=== PATIENT | male | born 1945 | race Caucasian/White ===

== ENCOUNTER 2022-03-30 15:54 | Observation (INO) | payer MEDICARE, OTHER ==
--- NOTE | 2022-03-30 16:38 | ERPHSYRPT ---
- History of Present Illness Source: patient Exam Limitations: no limitations Patient Subjective Stated Complaint: SOB/Cough Triage Nursing Assessment: Patient brought back to ED per w/c and transferred to bed per self. Patient A+O X 3. Patient's skin flushed, warm and dry. Patient states he is COVID Positive as of 03/28/2022 per home test. 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 Patient complains of increased SOB, cough and fatigue. O2 sat 87% on room air. Patient denies pain or discomfort. Physician History: 76 yo wm w +home CV19 test presents w cough/fever/dyspnea upon exertion x 2 days. He has had mild hemoptysis but denies N/V/D/melena/hematochezia. Pt has h/o bovine AVR/MO/CAGB/stents/pacer/HTN/hyperlipidemia. He quit smoking in 1996. Sats mid-high 80's upon arrival which increased to low 90's on 2L O2 NC. Timing/Duration: other (2-3 days) Activities at Onset: rest Severity of Dyspnea-Max: moderate Severity of Dyspnea-Current: moderate Possible Cause: no prior episodes Modifying Factors: Improves With: activity Associated Symptoms: cough, fever, weakness, chills, hemoptysis, heaviness, tightness, No chest pain/discomfort, No calf pain, No dizziness, No heart racing, No lightheadedness, No leg swelling, No muscle spasms feet, No muscle spasms hands, No painful breathing, No productive cough, No sweating, No tingling face, No tingling hands Allergies/Adverse Reactions: simvastatin [From Zocor] Allergy (Verified 03/30/22 21:32) muscle pain Home Medications: Apixaban [Eliquis 5 mg Tablet] 5 mg PO BID 03/30/22 [History] Ascorbic Acid [Vitamin C] 1,000 mg PO 209903/30/22 [History] Atorvastatin Calcium 40 mg PO 209903/30/22 [History] Carvedilol [Coreg] 6.25 mg PO BID 03/30/22 [History] Cholecalciferol (Vitamin D3) [Vitamin D3] 1 tab PO 209903/30/22 [History] Folic Acid 1 mg PO 209903/30/22 [History] Hydroxychloroquine Sulfate 200 mg PO 209903/30/22 [History] Lisinopril 5 mg [Zestril 5 MG] 5 mg PO 209903/30/22 [History] Loratadine 10 mg [Claritin 10 mg] 10 mg PO 209903/30/22 [History] Methotrexate Sodium 2.5 mg [Trexall 2.5 mg] 10 mg PO WEEKLY 03/30/22 [History] Omeprazole 20 mg PO 209903/30/22 [History] Zinc Gluconate [Zinc] 50 mg PO 209903/30/22 [History] Hx Influenza Vaccination/Date Given: No Hx Pneumococcal Vaccination/Date Given: No Immunizations Up to Date: Yes Travel Risk - International Travel Have you traveled outside of the country in past 3 weeks: No - Coronavirus Screening Are you exhibiting any of the following symptoms?: Yes Symptoms: Fever, Cough: New Onset, Shortness of Breath, Headaches/Body Aches/Fatigue Close contact with a COVID-19 positive Pt in past 14-21 Days: No - Vaccine Status Have you recieved a Covid-19 vaccination: No - Review of Systems Constitutional: No Symptoms, Fever, Chills, Fatigue, Malaise, Night Sweats, Weakness Eyes: No Symptoms Ears, Nose, & Throat: No Symptoms, Nose Congestion, Nose Discharge Respiratory: No Symptoms, Cough, Dyspnea, Dyspnea on Exertion (DANIELS) Cardiac: No Symptoms Abdominal/Gastrointestinal: No Symptoms Genitourinary Symptoms: No Symptoms Musculoskeletal: No Symptoms Skin: No Symptoms Neurological: No Symptoms Psychological: No Symptoms Endocrine: No Symptoms Hematologic/Lymphatic: No Symptoms Immunological/Allergic: Pollen Allergy - Past Medical History Pertinent Past Medical History: Yes Neurological History: No Pertinent History ENT History: No Pertinent History Cardiac History: Coronary Artery Disease, High Cholesterol, Hypertension Respiratory History: No Pertinent History Endocrine Medical History: No Pertinent History Musculoskeletal History: Rheumatoid Arthritis GI Medical History: GERD History: No Pertinent History Psycho-Social History: No Pertinent History Male Reproductive Disorders: No Pertinent History - Past Surgical History Past Surgical History: Yes Neuro Surgical History: No Pertinent History Cardiac: CABG, Pacemaker Respiratory: No Pertinent History Gastrointestinal: No Pertinent History Genitourinary: No Pertinent History Musculoskeletal: No Pertinent History Male Surgical History: No Pertinent History - Social History Smoking Status: Never smoker Exposure to second hand smoke: No Drug Use: none Patient Lives Alone: No - Nursing Vital Signs Nursing Vital Signs: Initial Vital Signs Temperature 98.3 F 03/30/22 16:03 Respiratory Rate 22 03/30/22 16:03 O2 Sat by Pulse Oximetry 87 L 03/30/22 16:03 Pain Scale Pain Intensity 0 Low sats on RA - Physical Exam General Appearance: mild distress Eye Exam: PERRL/EOMI, eyes nml inspection Ears, Nose, Throat Exam: hearing grossly normal, normal ENT inspection, normal pharynx Neck Exam: normal inspection, non-tender, supple, full range of motion, No Brudzinski, No Kernig's, No meningismus, No carotid bruit Respiratory Exam: respiratory distress (Mild), airway intact, crackles/rales (Rales 1/2 up B) Cardiovascular/Chest Exam: murmur (3/6 MARLEN) Abdominal/Gastrointestinal Exam: soft, normal bowel sounds, No tenderness Extremity Exam: non-tender, normal range of motion, normal inspection, normal capillary refill, no calf tenderness, no pedal edema Peripheral Pulses Exam: carotid (R): 2+, carotid (L): 2+ Neurologic Exam: alert, oriented x 3, cooperative, project product manager II-XII nml as tested, normal mood/affect, sensation nml Skin Exam: normal color, warm, dry, No rash Lymphatic Exam: No adenopathy SpO2 Interpretation: hypoxic SpO2: 87 O2 Delivery: Room Air - Course Nursing assessment & vital signs reviewed: Yes EKG Interpreted by Me: RATE (NSR/Rate78/Non-specific St-Twave changes/Qwaves 3- AVF) - Radiology Exams Chest X-ray Interpretation: Discussed w/ radiologist (CXR patchy, diffuse airspace dz) Ordered Tests: Active Orders 24 hr Category Date Time Status EKG-ER Only STAT Care 03/30/22 16:07 Completed Low Cholesterol Diet 03/31/22 Breakfast Active CHEST 1 VIEW (PORTABLE) Stat Exams 03/30/22 16:08 Completed BLOOD CULTURE Stat Lab 03/30/22 19:10 Received CBC W DIFF AM.LAB Lab 03/31/22 04:00 Ordered CBC W DIFF Stat Lab 03/30/22 16:30 Completed CMP AM.LAB Lab 03/31/22 04:00 Ordered CMP Stat Lab 03/30/22 16:30 Completed Lactic Acid AM.LAB Lab 03/31/22 04:00 Ordered Lactic Acid Routine Lab 03/30/22 19:10 Completed Lactic Acid Stat Lab 03/30/22 16:26 Completed NT PRO BNP Stat Lab 03/30/22 16:30 Completed PROTIME WITH INR Stat Lab 03/30/22 16:30 Completed PTT Stat Lab 03/30/22 16:30 Completed TROPONIN Q4H Lab 03/30/22 16:30 Completed TROPONIN Q4H Lab 03/30/22 19:10 Completed TROPONIN Q4H Lab 03/31/22 00:15 Ordered Transfer Order Routine Transfer 03/30/22 Completed Medication Summary Generic Name Dose Route Start Last Admin Trade Name Freq PRN Reason Stop Dose Admin Albuterol Sulfate 4 puff 03/30/22 19:00 Albuterol Common Canister Inhaler IH 04/29/22 18:59 QIDRT [facility] [place] Dexamethasone Sodium Phosphate 4 mg 03/31/22 10:00 Dexamethasone Sod Phosphate 4 Mg/Ml Ml IV 04/30/22 09:59 DAILY [facility] [place] Heparin Sodium (Beef Lung) 5,000 unit 03/30/22 22:00 Heparin 5000 Units/0.5 Ml 5,000 Unit/0.5 Ml Syr SQ 04/29/22 21:59 Q12HT [facility] [place] Insulin Human Lispro 0 unit 03/30/22 18:42 Insulin Lispro 1 Unit SQ 04/29/22 18:41 UD PRN HYPERGLYCEMIA Ondansetron HCl 4 mg 03/30/22 18:42 Ondansetron Hcl 4 Mg/2 Ml Vial IV 04/29/22 18:41 Q6H PRN PRN NAUSEA/VOMITING Pantoprazole Sodium 40 mg 03/31/22 10:00 Pantoprazole 40 Mg Vial IV 04/30/22 09:59 Q24H10 EMANUEL Discontinued Medications Generic Name Dose Route Start Last Admin Trade Name Freq PRN Reason Stop Dose Admin Dexamethasone Sodium Phosphate 10 mg 03/30/22 18:15 03/30/22 18:27 Dexamethasone Sod Phosphate 10 Mg/Ml IV 03/30/22 18:16 10 mg STAT ONE Administration Dexamethasone Sodium Phosphate Confirm 03/30/22 18:25 Dexamethasone Sod Phosphate 10 Mg/Ml Administered 03/30/22 18:26 Dose 10 mg .ROUTE .STK-MED ONE Sodium Chloride 1,000 mls @ 999 mls/hr 03/30/22 18:14 03/30/22 19:36 Sodium Chloride 0.9% 1000 Ml IV 03/30/22 19:14 Infused .Q1H1M STA Infusion Sodium Chloride Confirm 03/30/22 18:25 Sodium Chloride 0.9% 1000 Ml Administered 03/30/22 18:26 Dose 1,000 mls @ ud .ROUTE .STK-MED ONE Lab/Rad Data: Laboratory Result Diagrams 03/30/22 16:30 03/30/22 16:30 Laboratory Results 03/30/22 03/30/22 03/30/22 Range/Units 19:10 19:10 16:30 WBC (4.0-10.5) x10^3/uL RBC (4.1-5.6) x10^6/uL Hgb (12.5-18.0) g/dL Hct (42-50) % MCV (78-100) fL MCH (26-32) pg MCHC (32-36) g/dL RDW (11.5-14.0) % Plt Count (150-450) x10^3/uL MPV (7.5-11.0) fL Gran % (36.0-66.0) % Immature Gran % (Auto) (0.00-0.4) % Nucleat RBC Rel Count (0.00-0.1) % Eos # (Auto) (0-0.5) x10^3/uL Immature Gran # (Auto) (0.00-0.03) x10^3u/L Absolute Lymphs (auto) (1.0-4.6) x10^3/uL Absolute Monos (auto) (0.0-1.3) x10^3/uL Absolute Nucleated RBC (0.00-0.01) x10^3u/L Lymphocytes % (24.0-44.0) % Monocytes % (0.0-12.0) % Eosinophils % (0.00-5.0) % Basophils % (0.0-0.4) % Absolute Granulocytes (1.4-6.9) x10^3/uL Basophils # (0-0.4) x10^3/uL PT (9.4-12.5) SECONDS INR (0.8-3.0) APTT (25.1-36.5) SECONDS Sodium (137-145) mmol/L Potassium (3.5-5.1) mmol/L Chloride (98-107) mmol/L Carbon Dioxide (22-30) mmol/L Anion Gap (5-15) MEQ/L BUN (9-20) mg/dL Creatinine (0.66-1.25) mg/dL Estimated GFR ML/MIN Glucose (74-106) mg/dL Lactic Acid 2.5 H (0.4-2.0) Calcium (8.4-10.2) mg/dL Total Bilirubin (0.2-1.3) mg/dL AST (17-59) U/L ALT (0-50) U/L Alkaline Phosphatase (38-126) U/L Troponin I 0.033 (0.000-0.034) ng/mL NT-Pro-B Natriuret Pep (0-1800) pg/mL Serum Total Protein (6.3-8.2) g/dL Albumin (3.5-5.0) g/dL Influenza Type A Ag NEGATIVE (NEGATIVE) Influenza Type B Ag NEGATIVE (NEGATIVE) RSV (PCR) NEGATIVE (Negative) SARS-CoV-2 (PCR) POSITIVE A (NEGATIVE) Slides for Path Review 03/30/22 03/30/22 03/30/22 Range/Units 16:30 16:30 16:30 WBC (4.0-10.5) x10^3/uL RBC (4.1-5.6) x10^6/uL Hgb (12.5-18.0) g/dL Hct (42-50) % MCV (78-100) fL MCH (26-32) pg MCHC (32-36) g/dL RDW (11.5-14.0) % Plt Count (150-450) x10^3/uL MPV (7.5-11.0) fL Gran % (36.0-66.0) % Immature Gran % (Auto) (0.00-0.4) % Nucleat RBC Rel Count (0.00-0.1) % Eos # (Auto) (0-0.5) x10^3/uL Immature Gran # (Auto) (0.00-0.03) x10^3u/L Absolute Lymphs (auto) (1.0-4.6) x10^3/uL Absolute Monos (auto) (0.0-1.3) x10^3/uL Absolute Nucleated RBC (0.00-0.01) x10^3u/L Lymphocytes % (24.0-44.0) % Monocytes % (0.0-12.0) % Eosinophils % (0.00-5.0) % Basophils % (0.0-0.4) % Absolute Granulocytes (1.4-6.9) x10^3/uL Basophils # (0-0.4) x10^3/uL PT 11.6 (9.4-12.5) SECONDS INR 1.10 (0.8-3.0) APTT 28.5 (25.1-36.5) SECONDS Sodium 136 L (137-145) mmol/L Potassium 4.1 (3.5-5.1) mmol/L Chloride 108 H (98-107) mmol/L Carbon Dioxide 17 L (22-30) mmol/L Anion Gap 15.4 H (5-15) MEQ/L BUN 36 H (9-20) mg/dL Creatinine 1.27 H (0.66-1.25) mg/dL Estimated GFR 58.8 ML/MIN Glucose 258 H (74-106) mg/dL Lactic Acid (0.4-2.0) Calcium 8.7 (8.4-10.2) mg/dL Total Bilirubin 0.70 (0.2-1.3) mg/dL AST 95 H (17-59) U/L ALT 49 (0-50) U/L Alkaline Phosphatase 71 (38-126) U/L Troponin I 0.032 (0.000-0.034) ng/mL NT-Pro-B Natriuret Pep 1350 (0-1800) pg/mL Serum Total Protein 6.8 (6.3-8.2) g/dL Albumin 3.6 (3.5-5.0) g/dL Influenza Type A Ag (NEGATIVE) Influenza Type B Ag (NEGATIVE) RSV (PCR) (Negative) SARS-CoV-2 (PCR) (NEGATIVE) Slides for Path Review 03/30/22 03/30/22 Range/Units 16:30 16:26 WBC 9.7 (4.0-10.5) x10^3/uL RBC 3.59 L (4.1-5.6) x10^6/uL Hgb 12.1 L (12.5-18.0) g/dL Hct 35.8 L (42-50) % MCV 99.7 (78-100) fL MCH 33.7 H (26-32) pg MCHC 33.8 (32-36) g/dL RDW 14.5 H (11.5-14.0) % Plt Count 223 (150-450) x10^3/uL MPV 11.0 (7.5-11.0) fL Gran % 92.8 H (36.0-66.0) % Immature Gran % (Auto) 0.4 (0.00-0.4) % Nucleat RBC Rel Count 0.0 (0.00-0.1) % Eos # (Auto) 0 (0-0.5) x10^3/uL Immature Gran # (Auto) 0.04 H (0.00-0.03) x10^3u/L Absolute Lymphs (auto) 0.32 L (1.0-4.6) x10^3/uL Absolute Monos (auto) 0.34 (0.0-1.3) x10^3/uL Absolute Nucleated RBC 0.00 (0.00-0.01) x10^3u/L Lymphocytes % 3.3 L (24.0-44.0) % Monocytes % 3.5 (0.0-12.0) % Eosinophils % 0.0 (0.00-5.0) % Basophils % 0.0 (0.0-0.4) % Absolute Granulocytes 8.96 H (1.4-6.9) x10^3/uL Basophils # 0 (0-0.4) x10^3/uL PT (9.4-12.5) SECONDS INR (0.8-3.0) APTT (25.1-36.5) SECONDS Sodium (137-145) mmol/L Potassium (3.5-5.1) mmol/L Chloride (98-107) mmol/L Carbon Dioxide (22-30) mmol/L Anion Gap (5-15) MEQ/L BUN (9-20) mg/dL Creatinine (0.66-1.25) mg/dL Estimated GFR ML/MIN Glucose (74-106) mg/dL Lactic Acid 2.8 H (0.4-2.0) Calcium (8.4-10.2) mg/dL Total Bilirubin (0.2-1.3) mg/dL AST (17-59) U/L ALT (0-50) U/L Alkaline Phosphatase (38-126) U/L Troponin I (0.000-0.034) ng/mL NT-Pro-B Natriuret Pep (0-1800) pg/mL Serum Total Protein (6.3-8.2) g/dL Albumin (3.5-5.0) g/dL Influenza Type A Ag (NEGATIVE) Influenza Type B Ag (NEGATIVE) RSV (PCR) (Negative) SARS-CoV-2 (PCR) (NEGATIVE) Slides for Path Review YES - Progress Progress: improved Air Movement: fair Progress Note: 03/30/22 18:[address] Galeas 03/30/22 18:47 10mg IV Decadron 03/30/22 21:58 1L NS bolus 03/30/22 21:58 Lactic acid decreasing w fluids Blood Culture(s) Obtained: Yes Discussed with : Michelle Counseled pt/family regarding: lab results, diagnosis, rad results - Departure Departure Disposition: Observation Clinical Impression: COVID-19 Condition: Stable Critical Care Time: Yes Critical Care Time(excluding separately billable procedures): Critical 30-74 mins
--- NOTE | 2022-03-30 16:46 | XRAY ---
Indication: Positive Covid 19. Comparison: None Portable chest demonstrates mild diffuse bilateral patchy airspace disease without consolidation/large effusion. Heart not enlarged with cardiac valve replacement and left dual-lead pacemaker. Bony thorax intact with osteopenia and degenerative changes.
[2022-03-30 17:04] LABS: Absolute Neutrophil Ct (ANC) 8.96 x10^3/uL (1.4-6.9); Basophil (Absolute #) 0 x10^3/uL (0-0.4); Eosinophil (Absolute #) 0 x10^3/uL (0-0.5); Hematocrit 35.8 % (42-50); Hemoglobin 12.1 g/dL (12.5-18.0); Lymphocyte (Absolute #) 0.32 x10^3/uL (1.0-4.6); Lymphocytes % 3.3 % (24.0-44.0); Mean Cell Volume 99.7 fL (78-100); Mean Corpuscular Hemoglobin 33.7 pg (26-32); Mean Corpuscular Hgb Concent. 33.8 g/dL (32-36); Monocyte (Absolute #) 0.34 x10^3/uL (0.0-1.3); Monocytes % 3.5 % (0.0-12.0); Neutrophil % 92.8 % (36.0-66.0); Platelet Count 223 x10^3/uL (150-450); Red Blood Count 3.59 x10^6/uL (4.1-5.6); Red Cell Distribution Width 14.5 % (11.5-14.0); White Blood Count 9.7 x10^3/uL (4.0-10.5)
[2022-03-30 17:19] LABS: INR 1.1 (0.8-3.0); PROTIME 11.6 SECONDS (9.4-12.5); PTT 28.5 SECONDS (25.1-36.5)
[2022-03-30 17:26] LABS: ALBUMIN 3.6 g/dL (3.5-5.0); ANION GAP 15.4 MEQ/L (5-15); BILIRUBIN,TOTAL 0.7 mg/dL (0.2-1.3); Calcium 8.7 mg/dL (8.4-10.2); Creatinine 1 1.27 mg/dL (0.66-1.25); EST GLOMERULAR FILTRATION RATE 58.8 ML/MIN; Potassium 4.1 mmol/L (3.5-5.1); Total Protein 6.8 g/dL (6.3-8.2)
[2022-03-30 17:53] LABS: INFLUENZA A NEGATIVE (NEGATIVE); INFLUENZA B NEGATIVE (NEGATIVE); RESPIRATORY SYNCTIAL VIRUS NEGATIVE (Negative)
[2022-03-30 18:13] LABS: SARS-CoV-2 Xpert Express POSITIVE (NEGATIVE)
[2022-03-30] MEDS ORDERED: Sodium Chloride 0.9% 1000 ML 1,000 ML IV STA (18:14)
[2022-03-30] MEDS ORDERED: DECADRON 10MG INJ. IV ONE (18:15)
[2022-03-30] MEDS ORDERED: Sodium Chloride 0.9% 1000 ML 1,000 ML ONE (18:25)
[2022-03-30] MEDS ORDERED: DECADRON 10MG INJ. ONE (18:25)
[2022-03-30] MEDS ORDERED: Zofran 4 MG/2 ML VIAL IV PRN (18:42)
[2022-03-30] MEDS ORDERED: HUMALOG SQ PRN (18:42)
[2022-03-30 20:26] LABS: Slide Review 1 YES
[2022-03-30] MEDS ORDERED: HEPARIN 5000 UNITS/0.5 ML (HIGH RISK MED) SQ SCH (22:00)
[2022-03-30] MEDS: VENTOLIN COMMON CANISTER IH SCH (22:12)
[2022-03-30] MEDS ORDERED: TYLENOL 325 MG PO PRN (23:25)
[2022-03-30] MEDS ORDERED: ELIQUIS 2.5 MG TABLET PO ONE (23:35)
[2022-03-30] MEDS ORDERED: Vitamin C 500 MG PO ONE (23:36)
[2022-03-30] MEDS ORDERED: Coreg 3.125 MG PO ONE (23:37)
[2022-03-30] MEDS ORDERED: VITAMIN D PO ONE (23:38)
[2022-03-30] MEDS ORDERED: FOLATE 1 MG PO ONE (23:39)
[2022-03-30] MEDS ORDERED: Zestril 5 MG PO ONE (23:40)
[2022-03-30] MEDS ORDERED: CLARITIN 10 MG PO ONE (23:40)
[2022-03-30] MEDS ORDERED: Zinc Gluconate 50 MG PO ONE (23:42)
[2022-03-30] MEDS ORDERED: Protonix 40MG Tablet PO ONE (23:42)
[2022-03-30] MEDS ORDERED: NON-FORMULARY ITEM PO ONE (23:43)
[2022-03-30] MEDS ORDERED: REMDESIVIR 200 MG in Sodium Chloride 0.9% 250 ML 250 ML IV ONE (23:47)
[2022-03-31] MEDS ORDERED: REMDESIVIR IV ONE (00:03)
[2022-03-31] MEDS ORDERED: Sodium Chloride 0.9% 250 ML 250 ML IV ONE (00:03)
[2022-03-31 03:37] LABS: Absolute Neutrophil Ct (ANC) 5.88 x10^3/uL (1.4-6.9); Basophil (Absolute #) 0 x10^3/uL (0-0.4); Eosinophil (Absolute #) 0 x10^3/uL (0-0.5); Hematocrit 38.2 % (42-50); Hemoglobin 12.5 g/dL (12.5-18.0); Lymphocyte (Absolute #) 0.35 x10^3/uL (1.0-4.6); Lymphocytes % 5.4 % (24.0-44.0); Mean Cell Volume 101.6 fL (78-100); Mean Corpuscular Hemoglobin 33.2 pg (26-32); Mean Corpuscular Hgb Concent. 32.7 g/dL (32-36); Mean Platelet Volume 10.9 fL (7.5-11.0); Monocyte (Absolute #) 0.23 x10^3/uL (0.0-1.3); Monocytes % 3.5 % (0.0-12.0); Neutrophil % 90.8 % (36.0-66.0); Platelet Count 203 x10^3/uL (150-450); Red Blood Count 3.76 x10^6/uL (4.1-5.6); Red Cell Distribution Width 14.8 % (11.5-14.0); White Blood Count 6.5 x10^3/uL (4.0-10.5)
[2022-03-31 04:01] LABS: ALBUMIN 3.6 g/dL (3.5-5.0); ALKALINE PHOSPHATASE 69 U/L (38-126); BLOOD UREA NITROGEN 29 mg/dL (9-20); CHLORIDE 110 mmol/L (98-107); Calcium 8.5 mg/dL (8.4-10.2); Carbon Dioxide 21 mmol/L (22-30); Creatinine 1 1.13 mg/dL (0.66-1.25); EST GLOMERULAR FILTRATION RATE > 60.0 ML/MIN; Glucose 169 mg/dL (74-106); SGOT/AST 88 U/L (17-59); SGPT/ALT 46 U/L (0-50); SODIUM 138 mmol/L (137-145); Total Protein 6.9 g/dL (6.3-8.2)
[2022-03-31 07:02] LABS: Slide Review 1 YES
[2022-03-31] MEDS ORDERED: DUONEB 0.5-3 MG/3 ml Neb IH ONE (08:07)
[2022-03-31] MEDS: DUONEB 0.5-3 MG/3 ml Neb IH SCH ×3 (08:10→18:55)
[2022-03-31] MEDS: VENTOLIN COMMON CANISTER IH SCH (08:23)
[2022-03-31] MEDS ORDERED: PROTONIX 40 MG IV IV SCH (10:00)
[2022-03-31] MEDS: Decadron 4 MG INJ IV SCH (10:20)
[2022-03-31] MEDS ORDERED: OLUMIANT PO SCH (11:00)
[2022-03-31] MEDS: ROCEPHIN 1 Gm-D5w 50 ml Bag** 1 G/50 ML IVPB IV SCH (11:49)
[2022-03-31] MEDS: Zithromax 500 MG/ 250 ML NaCl Premix 500 MG/250 ML IVPB IV SCH (11:49)
[2022-03-31] MEDS: Lactated Ringers 1,000 ML IV SCH (15:41)
[2022-03-31] MEDS ORDERED: MORPHINE SULFATE 2 MG INJ IV PRN (15:44)
--- NOTE | 2022-03-31 15:45 | PCM.HP ---
History of Present Illness - Chief Complaint Chief Complaint: COVID+ History of Present Illness: is a 76 year old male pt with CAD (hx VA and CABG), pacemaker, bovine valve, HTN, hyperlipidemia, and RA (hx TOB, quit 1996) who was admitted through ER with COVID. He started feeling ill approx 03/26/22 and was positive on 03/28/22. He started feeling poorly and couldnt care for his anymore so came with her to ER. He was initially started on 2L NC in ER. At 11pm it increased to 5L NC, and by this morning was 15L NC. - Review of Systems Constitutional: Fatigue, Weakness Respiratory: Cough, Short Of Breath All Other Systems: Reviewed and Negative Medications & Allergies Home Medications: Home Medication List Apixaban [Eliquis 5 mg Tablet] 5 mg PO BID 03/30/22 [History Confirmed 03/30/22] Ascorbic Acid [Vitamin C] 1,000 mg PO 2100 03/30/22 [History Confirmed 03/30/22] Atorvastatin Calcium 40 mg PO 2100 03/30/22 [History Confirmed 03/30/22] Carvedilol [Coreg] 6.25 mg PO BID 03/30/22 [History Confirmed 03/30/22] Cholecalciferol (Vitamin D3) [Vitamin D3] 1 tab PO 2100 03/30/22 [History Confirmed 03/30/22] Folic Acid 1 mg PO 2100 03/30/22 [History Confirmed 03/30/22] Hydroxychloroquine Sulfate 200 mg PO 2100 03/30/22 [History Confirmed 03/30/22] Lisinopril 5 mg [Zestril 5 MG] 5 mg PO 2100 03/30/22 [History Confirmed 03/30/22] Loratadine 10 mg [Claritin 10 mg] 10 mg PO 2100 03/30/22 [History Confirmed 03/30/22] Methotrexate Sodium 2.5 mg [Trexall 2.5 mg] 10 mg PO WEEKLY 03/30/22 [History Confirmed 03/30/22] Omeprazole 20 mg PO 2100 03/30/22 [History Confirmed 03/30/22] Zinc Gluconate [Zinc] 50 mg PO 2100 03/30/22 [History Confirmed 03/30/22] Allergies/Adverse Reactions: Allergies Allergy/AdvReac Type Severity Reaction Status Date / Time simvastatin [From Zocor] Allergy Verified 03/30/22 21:32 - Past Medical History Past Medical History: Yes Neurological History: No Pertinent History ENT History: No Pertinent History Cardiac History: Coronary Artery Disease, High Cholesterol, Hypertension Respiratory History: No Pertinent History Endocrine Medical History: No Pertinent History Musculoskelatal History: Rheumatoid Arthritis GI Medical History: GERD History: No Pertinent History Pyscho-Social History: No Pertinent History Male Reproductive Disorders: No Pertinent History Comment: 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 - Past Surgical History Past Surgical History: Yes Neuro Surgical History: No Pertinent History Cardiac History: CABG, Pacemaker Respiratory Surgery: No Pertinent History GI Surgical History: No Pertinent History Genitourinary Surgical Hx: No Pertinent History Musculskeletal Surgical Hx: No Pertinent History Male Surgical History: No Pertinent History - Social History Smoking Status: Never smoker Exposure to second hand smoke: No Alcohol: None Drug Use: none - Physical Exam Vital Signs: Vital Signs - 24 hr Temp Pulse Resp BP Pulse Ox 03/31/22 15:00 67 36 H 89 L 03/31/22 14:00 75 19 90 L 03/31/22 13:30 78 32 H 90 L 03/31/22 13:22 18 03/31/22 13:00 78 39 H 87 L 03/31/22 12:00 98.7 F 72 18 152/66 96 03/31/22 11:00 76 26 H 94 L 03/31/22 10:00 83 25 H 81 L 03/31/22 09:00 69 27 H 87 L 03/31/22 08:45 88 25 H 85 L 03/31/22 08:00 16 03/31/22 07:22 98 F 81 16 165/80 90 L 03/31/22 06:59 62 23 90 L 03/31/22 05:59 98.7 F 61 24 146/66 89 L 03/31/22 05:00 62 21 90 L 03/31/22 04:00 25 H 03/31/22 03:00 60 24 90 L 03/31/22 02:00 61 23 90 L 03/31/22 01:00 60 25 H 91 L 03/31/22 00:17 69 24 90 L 03/31/22 00:00 61 18 86 L 03/30/22 22:00 26 H 03/30/22 21:59 87 L 03/30/22 21:41 98.4 F 67 21 146/67 89 L 03/30/22 19:33 66 94 L 03/30/22 16:03 98.3 F 22 87 L General Appearance: no apparent distress, alert, other (fairly well-appearing) Neurologic Exam: oriented x 3, cooperative Eye Exam: eyes nml inspection Ears, Nose, Throat Exam: moist mucous membranes Neck Exam: normal inspection Respiratory Exam: diminished breath sounds (good air exchange), crackles/rales (bibasilar rales), No rhonchi, No wheezing Cardiovascular Exam: regular rate/rhythm, normal heart sounds, No murmur Gastrointestinal/Abdomen Exam: soft, normal bowel sounds, No tenderness, No distention, No mass, No guarding, No rebound Back Exam: normal inspection, No rash Extremity Exam: normal inspection, No pedal edema, No swelling Skin Exam: normal color, warm, dry, No rash Results - Labs Lab/Micro Results: Lab Results-Last 24 Hours 03/30/22 03/30/22 03/30/22 Range/Units 16:26 16:30 16:30 WBC 9.7 (4.0-10.5) x10^3/uL RBC 3.59 L (4.1-5.6) x10^6/uL Hgb 12.1 L (12.5-18.0) g/dL Hct 35.8 L (42-50) % MCV 99.7 (78-100) fL MCH 33.7 H (26-32) pg MCHC 33.8 (32-36) g/dL RDW 14.5 H (11.5-14.0) % Plt Count 223 (150-450) x10^3/uL MPV 11.0 (7.5-11.0) fL Gran % 92.8 H (36.0-66.0) % Immature Gran % (Auto) 0.4 (0.00-0.4) % Nucleat RBC Rel Count 0.0 (0.00-0.1) % Eos # (Auto) 0 (0-0.5) x10^3/uL Immature Gran # (Auto) 0.04 H (0.00-0.03) x10^3u/L Absolute Lymphs (auto) 0.32 L (1.0-4.6) x10^3/uL Absolute Monos (auto) 0.34 (0.0-1.3) x10^3/uL Absolute Nucleated RBC 0.00 (0.00-0.01) x10^3u/L Lymphocytes % 3.3 L (24.0-44.0) % Monocytes % 3.5 (0.0-12.0) % Eosinophils % 0.0 (0.00-5.0) % Basophils % 0.0 (0.0-0.4) % Absolute Granulocytes 8.96 H (1.4-6.9) x10^3/uL Basophils # 0 (0-0.4) x10^3/uL PT (9.4-12.5) SECONDS INR (0.8-3.0) APTT (25.1-36.5) SECONDS Sodium 136 L (137-145) mmol/L Potassium 4.1 (3.5-5.1) mmol/L Chloride 108 H (98-107) mmol/L Carbon Dioxide 17 L (22-30) mmol/L Anion Gap 15.4 H (5-15) MEQ/L BUN 36 H (9-20) mg/dL Creatinine 1.27 H (0.66-1.25) mg/dL Estimated GFR 58.8 ML/MIN Glucose 258 H (74-106) mg/dL POC Glucometer (74 to 106) mg/dL Lactic Acid 2.8 H (0.4-2.0) Calcium 8.7 (8.4-10.2) mg/dL Total Bilirubin 0.70 (0.2-1.3) mg/dL AST 95 H (17-59) U/L ALT 49 (0-50) U/L Alkaline Phosphatase 71 (38-126) U/L Troponin I (0.000-0.034) ng/mL NT-Pro-B Natriuret Pep 1350 (0-1800) pg/mL Serum Total Protein 6.8 (6.3-8.2) g/dL Albumin 3.6 (3.5-5.0) g/dL Procalcitonin (0.030-0.080) ng/mL Influenza Type A Ag (NEGATIVE) Influenza Type B Ag (NEGATIVE) RSV (PCR) (Negative) SARS-CoV-2 (PCR) (NEGATIVE) Slides for Path Review YES 03/30/22 03/30/22 03/30/22 Range/Units 16:30 16:30 16:30 WBC (4.0-10.5) x10^3/uL RBC (4.1-5.6) x10^6/uL Hgb (12.5-18.0) g/dL Hct (42-50) % MCV (78-100) fL MCH (26-32) pg MCHC (32-36) g/dL RDW (11.5-14.0) % Plt Count (150-450) x10^3/uL MPV (7.5-11.0) fL Gran % (36.0-66.0) % Immature Gran % (Auto) (0.00-0.4) % Nucleat RBC Rel Count (0.00-0.1) % Eos # (Auto) (0-0.5) x10^3/uL Immature Gran # (Auto) (0.00-0.03) x10^3u/L Absolute Lymphs (auto) (1.0-4.6) x10^3/uL Absolute Monos (auto) (0.0-1.3) x10^3/uL Absolute Nucleated RBC (0.00-0.01) x10^3u/L Lymphocytes % (24.0-44.0) % Monocytes % (0.0-12.0) % Eosinophils % (0.00-5.0) % Basophils % (0.0-0.4) % Absolute Granulocytes (1.4-6.9) x10^3/uL Basophils # (0-0.4) x10^3/uL PT 11.6 (9.4-12.5) SECONDS INR 1.10 (0.8-3.0) APTT 28.5 (25.1-36.5) SECONDS Sodium (137-145) mmol/L Potassium (3.5-5.1) mmol/L Chloride (98-107) mmol/L Carbon Dioxide (22-30) mmol/L Anion Gap (5-15) MEQ/L BUN (9-20) mg/dL Creatinine (0.66-1.25) mg/dL Estimated GFR ML/MIN Glucose (74-106) mg/dL POC Glucometer (74 to 106) mg/dL Lactic Acid (0.4-2.0) Calcium (8.4-10.2) mg/dL Total Bilirubin (0.2-1.3) mg/dL AST (17-59) U/L ALT (0-50) U/L Alkaline Phosphatase (38-126) U/L Troponin I 0.032 (0.000-0.034) ng/mL NT-Pro-B Natriuret Pep (0-1800) pg/mL Serum Total Protein (6.3-8.2) g/dL Albumin (3.5-5.0) g/dL Procalcitonin (0.030-0.080) ng/mL Influenza Type A Ag NEGATIVE (NEGATIVE) Influenza Type B Ag NEGATIVE (NEGATIVE) RSV (PCR) NEGATIVE (Negative) SARS-CoV-2 (PCR) POSITIVE A (NEGATIVE) Slides for Path Review 03/30/22 03/30/22 03/30/22 Range/Units 19:10 19:10 22:00 WBC (4.0-10.5) x10^3/uL RBC (4.1-5.6) x10^6/uL Hgb (12.5-18.0) g/dL Hct (42-50) % MCV (78-100) fL MCH (26-32) pg MCHC (32-36) g/dL RDW (11.5-14.0) % Plt Count (150-450) x10^3/uL MPV (7.5-11.0) fL Gran % (36.0-66.0) % Immature Gran % (Auto) (0.00-0.4) % Nucleat RBC Rel Count (0.00-0.1) % Eos # (Auto) (0-0.5) x10^3/uL Immature Gran # (Auto) (0.00-0.03) x10^3u/L Absolute Lymphs (auto) (1.0-4.6) x10^3/uL Absolute Monos (auto) (0.0-1.3) x10^3/uL Absolute Nucleated RBC (0.00-0.01) x10^3u/L Lymphocytes % (24.0-44.0) % Monocytes % (0.0-12.0) % Eosinophils % (0.00-5.0) % Basophils % (0.0-0.4) % Absolute Granulocytes (1.4-6.9) x10^3/uL Basophils # (0-0.4) x10^3/uL PT (9.4-12.5) SECONDS INR (0.8-3.0) APTT (25.1-36.5) SECONDS Sodium (137-145) mmol/L Potassium (3.5-5.1) mmol/L Chloride (98-107) mmol/L Carbon Dioxide (22-30) mmol/L Anion Gap (5-15) MEQ/L BUN (9-20) mg/dL Creatinine (0.66-1.25) mg/dL Estimated GFR ML/MIN Glucose (74-106) mg/dL POC Glucometer (74 to 106) mg/dL Lactic Acid 2.5 H (0.4-2.0) Calcium (8.4-10.2) mg/dL Total Bilirubin (0.2-1.3) mg/dL AST (17-59) U/L ALT (0-50) U/L Alkaline Phosphatase (38-126) U/L Troponin I 0.033 (0.000-0.034) ng/mL NT-Pro-B Natriuret Pep (0-1800) pg/mL Serum Total Protein (6.3-8.2) g/dL Albumin (3.5-5.0) g/dL Procalcitonin 0.082 H (0.030-0.080) ng/mL Influenza Type A Ag (NEGATIVE) Influenza Type B Ag (NEGATIVE) RSV (PCR) (Negative) SARS-CoV-2 (PCR) (NEGATIVE) Slides for Path Review 03/31/22 03/31/22 03/31/22 Range/Units 03:33 03:33 03:33 WBC 6.5 (4.0-10.5) x10^3/uL RBC 3.76 L (4.1-5.6) x10^6/uL Hgb 12.5 (12.5-18.0) g/dL Hct 38.2 L (42-50) % MCV 101.6 H (78-100) fL MCH 33.2 H (26-32) pg MCHC 32.7 (32-36) g/dL RDW 14.8 H (11.5-14.0) % Plt Count 203 (150-450) x10^3/uL MPV 10.9 (7.5-11.0) fL Gran % 90.8 H (36.0-66.0) % Immature Gran % (Auto) 0.3 (0.00-0.4) % Nucleat RBC Rel Count 0.0 (0.00-0.1) % Eos # (Auto) 0 (0-0.5) x10^3/uL Immature Gran # (Auto) 0.02 (0.00-0.03) x10^3u/L Absolute Lymphs (auto) 0.35 L (1.0-4.6) x10^3/uL Absolute Monos (auto) 0.23 (0.0-1.3) x10^3/uL Absolute Nucleated RBC 0.00 (0.00-0.01) x10^3u/L Lymphocytes % 5.4 L (24.0-44.0) % Monocytes % 3.5 (0.0-12.0) % Eosinophils % 0.0 (0.00-5.0) % Basophils % 0.0 (0.0-0.4) % Absolute Granulocytes 5.88 (1.4-6.9) x10^3/uL Basophils # 0 (0-0.4) x10^3/uL PT (9.4-12.5) SECONDS INR (0.8-3.0) APTT (25.1-36.5) SECONDS Sodium 138 (137-145) mmol/L Potassium 5.0 D (3.5-5.1) mmol/L Chloride 110 H (98-107) mmol/L Carbon Dioxide 21 L (22-30) mmol/L Anion Gap 12.0 (5-15) MEQ/L BUN 29 H (9-20) mg/dL Creatinine 1.13 (0.66-1.25) mg/dL Estimated GFR > 60.0 ML/MIN Glucose 169 H (74-106) mg/dL POC Glucometer (74 to 106) mg/dL Lactic Acid (0.4-2.0) Calcium 8.5 (8.4-10.2) mg/dL Total Bilirubin 0.70 (0.2-1.3) mg/dL AST 88 H (17-59) U/L ALT 46 (0-50) U/L Alkaline Phosphatase 69 (38-126) U/L Troponin I 0.037 H* (0.000-0.034) ng/mL NT-Pro-B Natriuret Pep (0-1800) pg/mL Serum Total Protein 6.9 (6.3-8.2) g/dL Albumin 3.6 (3.5-5.0) g/dL Procalcitonin (0.030-0.080) ng/mL Influenza Type A Ag (NEGATIVE) Influenza Type B Ag (NEGATIVE) RSV (PCR) (Negative) SARS-CoV-2 (PCR) (NEGATIVE) Slides for Path Review YES 03/31/22 03/31/22 03/31/22 Range/Units 03:45 07:15 11:39 WBC (4.0-10.5) x10^3/uL RBC (4.1-5.6) x10^6/uL Hgb (12.5-18.0) g/dL Hct (42-50) % MCV (78-100) fL MCH (26-32) pg MCHC (32-36) g/dL RDW (11.5-14.0) % Plt Count (150-450) x10^3/uL MPV (7.5-11.0) fL Gran % (36.0-66.0) % Immature Gran % (Auto) (0.00-0.4) % Nucleat RBC Rel Count (0.00-0.1) % Eos # (Auto) (0-0.5) x10^3/uL Immature Gran # (Auto) (0.00-0.03) x10^3u/L Absolute Lymphs (auto) (1.0-4.6) x10^3/uL Absolute Monos (auto) (0.0-1.3) x10^3/uL Absolute Nucleated RBC (0.00-0.01) x10^3u/L Lymphocytes % (24.0-44.0) % Monocytes % (0.0-12.0) % Eosinophils % (0.00-5.0) % Basophils % (0.0-0.4) % Absolute Granulocytes (1.4-6.9) x10^3/uL Basophils # (0-0.4) x10^3/uL PT (9.4-12.5) SECONDS INR (0.8-3.0) APTT (25.1-36.5) SECONDS Sodium (137-145) mmol/L Potassium (3.5-5.1) mmol/L Chloride (98-107) mmol/L Carbon Dioxide (22-30) mmol/L Anion Gap (5-15) MEQ/L BUN (9-20) mg/dL Creatinine (0.66-1.25) mg/dL Estimated GFR ML/MIN Glucose (74-106) mg/dL POC Glucometer 147 H 139 H (74 to 106) mg/dL Lactic Acid 2.5 H (0.4-2.0) Calcium (8.4-10.2) mg/dL Total Bilirubin (0.2-1.3) mg/dL AST (17-59) U/L ALT (0-50) U/L Alkaline Phosphatase (38-126) U/L Troponin I (0.000-0.034) ng/mL NT-Pro-B Natriuret Pep (0-1800) pg/mL Serum Total Protein (6.3-8.2) g/dL Albumin (3.5-5.0) g/dL Procalcitonin (0.030-0.080) ng/mL Influenza Type A Ag (NEGATIVE) Influenza Type B Ag (NEGATIVE) RSV (PCR) (Negative) SARS-CoV-2 (PCR) (NEGATIVE) Slides for Path Review Accuchecks Date 03/31/22 Date 03/31/22 Time 07:15 - Radiology Impressions Radiology Exams & Impressions: Radiology Procedures Category Date Time Status CHEST 1 VIEW (PORTABLE) Stat Exams 03/30/22 16:08 Completed CHEST 1 VIEW (PORTABLE) Stat Exams 03/31/22 11:00 Taken - Other Procedures and Tests Respiratory Therapy 03/31/22 00:16 Respiratory Therapy Assessment DAILY 03/31/22 11:36 Oxygen High Flow per RT 50% Assessment/Plan (1) COVID-19 Current Visit: Yes Status: Acute Assessment & Plan: with hypoxemia. Started remdesivir last night, and after consultation with pharmacy and pulmonology (Dr. Bray, thank you) added baricitanib today. On Dexamethasone. May try bipap intermittently for rest. Will consult Dr. Bray if he is not improving later today. Code(s): U07.1 - COVID-19 (2) CAD (coronary artery disease) Current Visit: Yes Status: Chronic Qualifiers: Coronary Disease-Associated Artery/Lesion type: bypass graft [place] vs. transplanted heart: [place] heart Associated angina: without angina Qualified Code(s): I25.810 - Atherosclerosis of coronary artery bypass graft(s) without angina pectoris Code(s): I25.10 - ATHSCL HEART DISEASE OF [place] CORONARY ARTERY W/O ANG PCTRS (3) Pacemaker Current Visit: Yes Status: Chronic Code(s): Z95.0 - PRESENCE OF CARDIAC PACEMAKER (4) HTN (hypertension) Current Visit: Yes Status: Chronic Qualifiers: Hypertension type: primary hypertension Qualified Code(s): I10 - Essential (primary) hypertension Code(s): I10 - ESSENTIAL (PRIMARY) HYPERTENSION (5) Hyperlipidemia Current Visit: Yes Status: Chronic Qualifiers: Hyperlipidemia type: mixed hyperlipidemia Qualified Code(s): E78.2 - Mixed hyperlipidemia Code(s): E78.5 - HYPERLIPIDEMIA, UNSPECIFIED
[2022-03-31] MEDS: Ativan 2 MG/1 ML VIAL IV PRN ×2 (15:56→21:27)
--- NOTE | 2022-03-31 20:31 | XRAY ---
Indication: Worsening hypoxemia. Comparison: One day earlier Portable chest demonstrates worsening mild diffuse bilateral patchy airspace disease without consolidation/large effusion. Heart not enlarged again with incidental cardiac valve replacement and left pacemaker. Comment: Preliminary interpretation made by [facility]. No critical discrepancy.
[2022-03-31] MEDS ORDERED: LIPITOR 40MG PO SCH (21:00)
[2022-03-31] MEDS ORDERED: VITAMIN D PO SCH (21:00)
[2022-03-31] MEDS ORDERED: NON-FORMULARY ITEM (Omeprazole [Omeprazole] 20 MG Capsule.Dr) PO SCH (21:00)
[2022-03-31] MEDS ORDERED: Zinc Gluconate 50 MG PO SCH (21:00)
[2022-03-31] MEDS ORDERED: CLARITIN 10 MG PO SCH (21:00)
[2022-03-31] MEDS ORDERED: FOLATE 1 MG PO SCH (21:00)
[2022-03-31] MEDS ORDERED: PATIENT OWN MEDICATION PO SCH (21:00)
[2022-03-31] MEDS ORDERED: Zestril 5 MG PO SCH (21:00)
[2022-03-31] MEDS ORDERED: NON-FORMULARY ITEM (Ascorbic Acid [Vitamin C] 1,000 MG Tablet) PO SCH (21:00)
[2022-03-31] MEDS ORDERED: Protonix 40MG Tablet PO SCH (21:00)
[2022-03-31] MEDS ORDERED: Vitamin C 500 MG PO SCH (21:00)
[2022-03-31] MEDS ORDERED: NON-FORMULARY ITEM (Cholecalciferol (Vitamin D3) [Vitamin D3] 250 MCG Tablet) PO SCH (21:00)
[2022-03-31] MEDS: Coreg PO SCH (21:26)
[2022-03-31] MEDS: ELIQUIS 2.5 MG TABLET PO SCH (21:26)
[2022-03-31 21:50] LABS: A-aADO2 601; ABG HEMOGLOBIN 13.1; ABG POTASSIUM 4.5 (3.5-5.1); ABG SITE LEFT RADIAL; ALLEN TEST OK? YES; ARTERIAL BLOOD GAS BASE EXCESS -3.8 (-2.0-2.0); ARTERIAL BLOOD GAS FIO2 100 %; ARTERIAL BLOOD GAS PCO2 28 mmHg (35-45); ARTERIAL BLOOD GAS PO2 77 mmHg (75-100); ARTERIAL BLOOD GAS pH 7.44 (7.35-7.45); CARBOXYHEMOGLOBIN 0.5 % THgb (0.0-6.9); HGB O2 SAT 94.8 g/dF (94-100); Methhemoglobin 0.8 % (1.4-1.5)
[2022-03-31] MEDS ORDERED: REMDESIVIR 100 MG in Sodium Chloride 100ML MINI-BAG PLUS 100 ML IV SCH (22:00)
[2022-03-31] MEDS ORDERED: NON-FORMULARY ITEM (Apixaban*** [Eliquis 5 Mg Tablet***] 5 MG Tablet) PO SCH (22:00)
[2022-03-31] MEDS ORDERED: Ativan 2 MG/1 ML VIAL IV PRN (23:21)
[2022-04-01] MEDS: DUONEB 0.5-3 MG/3 ml Neb IH SCH ×2 (01:00→07:35)
[2022-04-01] MEDS: Lactated Ringers 1,000 ML IV SCH (04:28)
[2022-04-01 05:24] LABS: Absolute Neutrophil Ct (ANC) 9.24 x10^3/uL (1.4-6.9); Basophil (Absolute #) 0.01 x10^3/uL (0-0.4); Eosinophil (Absolute #) 0 x10^3/uL (0-0.5); Hematocrit 38.5 % (42-50); Hemoglobin 12.7 g/dL (12.5-18.0); Lymphocyte (Absolute #) 0.68 x10^3/uL (1.0-4.6); Lymphocytes % 6.4 % (24.0-44.0); Mean Cell Volume 100.5 fL (78-100); Mean Corpuscular Hemoglobin 33.2 pg (26-32); Mean Platelet Volume 10.7 fL (7.5-11.0); Monocyte (Absolute #) 0.57 x10^3/uL (0.0-1.3); Monocytes % 5.4 % (0.0-12.0); Neutrophil % 87.3 % (36.0-66.0); Platelet Count 204 x10^3/uL (150-450); Red Blood Count 3.83 x10^6/uL (4.1-5.6); Red Cell Distribution Width 14.7 % (11.5-14.0); White Blood Count 10.6 x10^3/uL (4.0-10.5)
[2022-04-01 06:25] LABS: ALBUMIN 3.3 g/dL (3.5-5.0); ALKALINE PHOSPHATASE 91 U/L (38-126); BLOOD UREA NITROGEN 32 mg/dL (9-20); CHLORIDE 107 mmol/L (98-107); Calcium 8.5 mg/dL (8.4-10.2); Carbon Dioxide 22 mmol/L (22-30); Creatinine 1 1.01 mg/dL (0.66-1.25); EST GLOMERULAR FILTRATION RATE > 60.0 ML/MIN; Glucose 133 mg/dL (74-106); Potassium 4.7 mmol/L (3.5-5.1); SGOT/AST 97 U/L (17-59); SGPT/ALT 40 U/L (0-50); SODIUM 136 mmol/L (137-145); Total Protein 6.5 g/dL (6.3-8.2)
[2022-04-01] MEDS ORDERED: Ativan 2 MG/1 ML VIAL IV PRN (07:10)
[2022-04-01 07:46] LABS: A-aADO2 564; ABG HEMOGLOBIN 12.8; ABG POTASSIUM 4.4 (3.5-5.1); ARTERIAL BLD GAS O2 SATURATION 98.4 % (95-100); ARTERIAL BLD GAS TIDAL VOLUME 550 cc; ARTERIAL BLOOD GAS BASE EXCESS -2.1 (-2.0-2.0); ARTERIAL BLOOD GAS FIO2 100 %; ARTERIAL BLOOD GAS PCO2 29 mmHg (35-45); ARTERIAL BLOOD GAS PO2 113 mmHg (75-100); ARTERIAL BLOOD GAS VENT MODE AVAPS; ARTERIAL BLOOD GAS pH 7.46 (7.35-7.45); CARBOXYHEMOGLOBIN 0.3 % THgb (0.0-6.9); HCO3- 20.6 (22-28); HGB O2 SAT 97.5 g/dF (94-100); Methhemoglobin 0.6 % (1.4-1.5)
[2022-04-01 07:47] LABS: ABG SITE RIGHT RADIAL; ALLEN TEST OK? YES; ARTERIAL BLOOD GAS VENT RATE 20 /MIN
[2022-04-01 07:52] VITALS: BP 161/70
[2022-04-01] MEDS: ROCEPHIN 1 Gm-D5w 50 ml Bag** 1 G/50 ML IVPB IV SCH (09:27)
[2022-04-01] MEDS: Coreg PO SCH (09:28)
[2022-04-01] MEDS: Decadron 4 MG INJ IV SCH (09:28)
[2022-04-01] MEDS: ELIQUIS 2.5 MG TABLET PO SCH (09:28)
[2022-04-01 09:54] VITALS: PULSE 65; O2SAT 100
[2022-04-01] MEDS ORDERED: OLUMIANT PO SCH (10:00)
[2022-04-01] MEDS: Zithromax 500 MG/ 250 ML NaCl Premix 500 MG/250 ML IVPB IV SCH (10:05)
--- NOTE | 2022-04-01 13:22 | PCM.DS ---
Discharge Summary Date of Admission: 04/01/22 08:42 Admitting Physician: MICHAEL JOHNSTON Consults: Consults on Case 04/01/22 07:22 Consult Pulmonology ROUTINE Primary Care Provider: [facility] Allergies Allergies simvastatin [From Zocor] Allergy (Verified 03/30/22 21:32) muscle pain Hospital Summary - Hospital Course Hospital Course: Pt is a 76 yo male [place] pt with hx CAD (hx CABG and FL), porcine aortic valve, pacemaker, hyperlipidemia, hx TOB use (quit 1996), and RA who was admitted through ER with COVID. He had started sx on 03/26/22 and tested positive on 03/28/22. When he came to the hospital on 03/30/22, his O2 sats were mid 80s and he was put on 2L O2. By that evening he required 5L, then hi flow by the next day. Last night he was on Bipap at 100% (AVAPs, TV at 550, RR 20, PEEP 10). He will desat into the 70s when off the bipap even to take pills. Vitals have otherwise been stable. Afebrile. Has been tolerating po. Has been conversant. He was placed on IV dexamethasone and remdesivir the day of admission. Yesterday I spoke with Dr. Alexandr Bray regarding his treatment, and we added rocephin and zithromax and baracitinib. Pt is worried about his , who is also in the hospital with covid, and for whom he provides nearly total care (she will discharge from the hospital fairly soon). He is transferring out today to [facility] under Dr. Oquendo, thank you, with Dr. Bray to consult. - Vitals & Intake/Output Vital Signs: Vital Signs Temperature 99.1 F 04/01/22 07:51 Pulse Rate 65 04/01/22 09:53 Respiratory Rate 34 H 04/01/22 10:00 Blood Pressure 161/70 04/01/22 07:51 O2 Sat by Pulse Oximetry 100 04/01/22 09:53 Intake & Output: Intake & Output 03/30/22 03/31/22 04/01/22 04/02/22 11:59 11:59 11:59 11:59 Intake Total 440 1914 Output Total 2500 Balance 440 -586 Weight 81.6 kg - Lab Result Diagrams: 04/01/22 05:00 04/01/22 05:00 Lab Results-Last 24 Hrs: Lab Results-Last 24 Hours 03/31/22 03/31/22 04/01/22 Range/Units 21:35 21:45 05:00 WBC 10.6 H (4.0-10.5) x10^3/uL RBC 3.83 L (4.1-5.6) x10^6/uL Hgb 12.7 (12.5-18.0) g/dL Hct 38.5 L (42-50) % MCV 100.5 H (78-100) fL MCH 33.2 H (26-32) pg MCHC 33.0 (32-36) g/dL RDW 14.7 H (11.5-14.0) % Plt Count 204 (150-450) x10^3/uL MPV 10.7 (7.5-11.0) fL Gran % 87.3 H (36.0-66.0) % Immature Gran % (Auto) 0.8 H (0.00-0.4) % Nucleat RBC Rel Count 0.0 (0.00-0.1) % Eos # (Auto) 0 (0-0.5) x10^3/uL Immature Gran # (Auto) 0.08 H (0.00-0.03) x10^3u/L Absolute Lymphs (auto) 0.68 L (1.0-4.6) x10^3/uL Absolute Monos (auto) 0.57 (0.0-1.3) x10^3/uL Absolute Nucleated RBC 0.00 (0.00-0.01) x10^3u/L Lymphocytes % 6.4 L (24.0-44.0) % Monocytes % 5.4 (0.0-12.0) % Eosinophils % 0.0 (0.00-5.0) % Basophils % 0.1 (0.0-0.4) % Absolute Granulocytes 9.24 H (1.4-6.9) x10^3/uL Basophils # 0.01 (0-0.4) x10^3/uL Puncture Site LEFT RADIAL pCO2 28 L (35-45) mmHg pO2 77 (75-100) mmHg Base Excess -3.8 L (-2.0-2.0) O2 Saturation 94.8 (94-100) g/dF ABG pH 7.44 (7.35-7.45) ABG HCO3 19.0 L (22-28) ABG O2 Sat (Measured) 96.0 (95-100) % Nav[place]et Test YES A-a Gradient 601 a/A Ratio 0.11 Hemoglobin 13.1 Carboxyhemoglobin 0.5 (0.0-6.9) % THgb Methemoglobin 0.8 L (1.4-1.5) % Potassium 4.5 (3.5-5.1) Temperature 37.0 C POC O2 Flow Rate 100 % Vent Mode Vent Rate /MIN Tidal Volume cc Sodium (137-145) mmol/L Chloride (98-107) mmol/L Carbon Dioxide (22-30) mmol/L Anion Gap (5-15) MEQ/L BUN (9-20) mg/dL Creatinine (0.66-1.25) mg/dL Estimated GFR ML/MIN Glucose (74-106) mg/dL POC Glucometer 140 H (74 to 106) mg/dL Calcium (8.4-10.2) mg/dL Total Bilirubin (0.2-1.3) mg/dL AST (17-59) U/L ALT (0-50) U/L Alkaline Phosphatase (38-126) U/L Troponin I (0.000-0.034) ng/mL Serum Total Protein (6.3-8.2) g/dL Albumin (3.5-5.0) g/dL 04/01/22 04/01/22 04/01/22 Range/Units 05:00 07:30 07:41 WBC (4.0-10.5) x10^3/uL RBC (4.1-5.6) x10^6/uL Hgb (12.5-18.0) g/dL Hct (42-50) % MCV (78-100) fL MCH (26-32) pg MCHC (32-36) g/dL RDW (11.5-14.0) % Plt Count (150-450) x10^3/uL MPV (7.5-11.0) fL Gran % (36.0-66.0) % Immature Gran % (Auto) (0.00-0.4) % Nucleat RBC Rel Count (0.00-0.1) % Eos # (Auto) (0-0.5) x10^3/uL Immature Gran # (Auto) (0.00-0.03) x10^3u/L Absolute Lymphs (auto) (1.0-4.6) x10^3/uL Absolute Monos (auto) (0.0-1.3) x10^3/uL Absolute Nucleated RBC (0.00-0.01) x10^3u/L Lymphocytes % (24.0-44.0) % Monocytes % (0.0-12.0) % Eosinophils % (0.00-5.0) % Basophils % (0.0-0.4) % Absolute Granulocytes (1.4-6.9) x10^3/uL Basophils # (0-0.4) x10^3/uL Puncture Site RIGHT RADIAL pCO2 29 L (35-45) mmHg pO2 113 H (75-100) mmHg Base Excess -2.1 L (-2.0-2.0) O2 Saturation 97.5 (94-100) g/dF ABG pH 7.46 H (7.35-7.45) ABG HCO3 20.6 L (22-28) ABG O2 Sat (Measured) 98.4 (95-100) % Nav[place]et Test YES A-a Gradient 564 a/A Ratio 0.17 Hemoglobin 12.8 Carboxyhemoglobin 0.3 (0.0-6.9) % THgb Methemoglobin 0.6 L (1.4-1.5) % Potassium 4.7 4.4 (3.5-5.1) Temperature 37.0 C POC O2 Flow Rate 100 % Vent Mode AVAPS Vent Rate 20 /MIN Tidal Volume 550 cc Sodium 136 L (137-145) mmol/L Chloride 107 (98-107) mmol/L Carbon Dioxide 22 (22-30) mmol/L Anion Gap 11.0 (5-15) MEQ/L BUN 32 H (9-20) mg/dL Creatinine 1.01 (0.66-1.25) mg/dL Estimated GFR > 60.0 ML/MIN Glucose 133 H (74-106) mg/dL POC Glucometer 122 H (74 to 106) mg/dL Calcium 8.5 (8.4-10.2) mg/dL Total Bilirubin 0.90 (0.2-1.3) mg/dL AST 97 H (17-59) U/L ALT 40 (0-50) U/L Alkaline Phosphatase 91 (38-126) U/L Troponin I (0.000-0.034) ng/mL Serum Total Protein 6.5 (6.3-8.2) g/dL Albumin 3.3 L (3.5-5.0) g/dL 04/01/22 Range/Units 09:50 WBC (4.0-10.5) x10^3/uL RBC (4.1-5.6) x10^6/uL Hgb (12.5-18.0) g/dL Hct (42-50) % MCV (78-100) fL MCH (26-32) pg MCHC (32-36) g/dL RDW (11.5-14.0) % Plt Count (150-450) x10^3/uL MPV (7.5-11.0) fL Gran % (36.0-66.0) % Immature Gran % (Auto) (0.00-0.4) % Nucleat RBC Rel Count (0.00-0.1) % Eos # (Auto) (0-0.5) x10^3/uL Immature Gran # (Auto) (0.00-0.03) x10^3u/L Absolute Lymphs (auto) (1.0-4.6) x10^3/uL Absolute Monos (auto) (0.0-1.3) x10^3/uL Absolute Nucleated RBC (0.00-0.01) x10^3u/L Lymphocytes % (24.0-44.0) % Monocytes % (0.0-12.0) % Eosinophils % (0.00-5.0) % Basophils % (0.0-0.4) % Absolute Granulocytes (1.4-6.9) x10^3/uL Basophils # (0-0.4) x10^3/uL Puncture Site pCO2 (35-45) mmHg pO2 (75-100) mmHg Base Excess (-2.0-2.0) O2 Saturation (94-100) g/dF ABG pH (7.35-7.45) ABG HCO3 (22-28) ABG O2 Sat (Measured) (95-100) % Nav[place]et Test A-a Gradient a/A Ratio Hemoglobin Carboxyhemoglobin (0.0-6.9) % THgb Methemoglobin (1.4-1.5) % Potassium (3.5-5.1) Temperature C POC O2 Flow Rate % Vent Mode Vent Rate /MIN Tidal Volume cc Sodium (137-145) mmol/L Chloride (98-107) mmol/L Carbon Dioxide (22-30) mmol/L Anion Gap (5-15) MEQ/L BUN (9-20) mg/dL Creatinine (0.66-1.25) mg/dL Estimated GFR ML/MIN Glucose (74-106) mg/dL POC Glucometer (74 to 106) mg/dL Calcium (8.4-10.2) mg/dL Total Bilirubin (0.2-1.3) mg/dL AST (17-59) U/L ALT (0-50) U/L Alkaline Phosphatase (38-126) U/L Troponin I 0.033 (0.000-0.034) ng/mL Serum Total Protein (6.3-8.2) g/dL Albumin (3.5-5.0) g/dL Micro Results-Entire Visit: Microbiology 03/30/22 19:10 Blood Culture - Preliminary Blood NO GROWTH TO DATE 03/30/22 16:20 Blood Culture - Preliminary Blood NO GROWTH TO DATE Accuchecks Date 04/01/22 Date 03/31/22 Time 07:40 Time 16:27 - Radiology Exams Ordered Rad Exams-Entire Visit: Radiology Procedures Category Date Time Status CHEST 1 VIEW (PORTABLE) Stat Exams 03/30/22 16:08 Completed CHEST 1 VIEW (PORTABLE) Stat Exams 03/31/22 11:00 Completed CHEST 1 VIEW (PORTABLE) Urgent Exams 04/01/22 09:30 Taken - Procedures and Test Procedures and Tests throughout Hospitalization: Therapy Orders & Screens 03/30/22 18:42 EKG REPEAT IN AM Comment: 03/30/22 18:43 Respiratory Therapy Consult ROUTINE Comment: Reason For Exam: 03/31/22 00:07 Oxygen Nasal Cannula 6 lpm Comment: Diagnosis: COVID+ 03/31/22 00:16 Respiratory Therapy Assessment DAILY Comment: Diagnosis: COVID+ 03/31/22 11:36 Oxygen High Flow per RT 50% Comment: as tolerated Diagnosis: COVID+ 03/31/22 23:20 BiPap/CPAP ROUTINE Comment: Diagnosis: COVID+ Discharge Exam General Appearance: no apparent distress, other (on bipap. answers questions.) Neurologic Exam: alert, cooperative Eye Exam: eyes nml inspection Ears, Nose, Throat Exam: moist mucous membranes Neck Exam: normal inspection Respiratory Exam: diminished breath sounds (good air exchange), No c rackles/rales, No rhonchi, No wheezing Cardiovascular Exam: regular rate/rhythm, normal heart sounds, No murmur Gastrointestinal/Abdomen Exam: soft, normal bowel sounds, No tenderness, No distention, No mass, No guarding, No rebound Extremity Exam: normal inspection, No pedal edema, No swelling Final Diagnosis/Problem List - Final Discharge Diagnosis/Problem (1) COVID-19 Current Visit: Yes Status: Acute Assessment & Plan: Continues to worsen despite appropriate treatment. [facility]ology are present. Code(s): U07.1 - COVID-19 (2) CAD (coronary artery disease) Current Visit: Yes Status: Chronic Code(s): I25.10 - ATHSCL HEART DISEASE OF [place] CORONARY ARTERY W/O ANG PCTRS (3) Pacemaker Current Visit: Yes Status: Chronic Code(s): Z95.0 - PRESENCE OF CARDIAC PACEMAKER (4) HTN (hypertension) Current Visit: Yes Status: Chronic Code(s): I10 - ESSENTIAL (PRIMARY) HYPERTENSION (5) Hyperlipidemia Current Visit: Yes Status: Chronic Code(s): E78.5 - HYPERLIPIDEMIA, UNSPECIFIED - Discharge Disposition: DC TO [facility] Condition: Serious Prescriptions: No Action Hydroxychloroquine Sulfate 200 mg PO 2100 Atorvastatin Calcium 40 mg PO 2100 Lisinopril 5 mg [Zestril 5 MG] 5 mg PO 2100 Carvedilol [Coreg] 6.25 mg PO BID Apixaban [Eliquis 5 mg Tablet] 5 mg PO BID Folic Acid 1 mg PO 2100 Omeprazole 20 mg PO 2100 Loratadine 10 mg [Claritin 10 mg] 10 mg PO 2100 Methotrexate Sodium 2.5 mg [Trexall 2.5 mg] 10 mg PO WEEKLY Zinc Gluconate [Zinc] 50 mg PO 2100 Cholecalciferol (Vitamin D3) [Vitamin D3] 1 tab PO 2100 Ascorbic Acid [Vitamin C] 1,000 mg PO 2100 Follow up with: HOSPITAL,'S [Primary Care Provider] -
--- NOTE | 2022-04-01 18:42 | XRAY ---
Indication: Hypoxia and tachypnea. Positive Covid 19. Comparison: One day earlier. Portable chest demonstrates continued worsening diffuse bilateral airspace disease. New tiny bibasilar effusions. Heart not enlarged again with left pacemaker. Comment: Preliminary interpretation made by C. No critical discrepancy.
== END 2022-04-01 10:30 | disposition home or self-care (01) ==
LOC: ED 15:54 → MED SURG 20:54 → OBSVTOIN 04-01 08:42 → INTOOBSV 04-01 08:42
PROVIDERS: ADMIT Family Medicine; ATTEND Family Medicine
DX: U07.1 COVID-19 (principal); I25.10 Atherosclerotic heart disease of native coronary artery without angina pectoris; Z95.0 Presence of cardiac pacemaker; I10 Essential (primary) hypertension; E78.5 Hyperlipidemia, unspecified; I25.2 Old myocardial infarction; Z79.01 Long term (current) use of anticoagulants; Z79.899 Other long term (current) drug therapy; Z20.828 Contact with and (suspected) exposure to other viral communicable diseases
CPT/HCPCS: 0241U; 36000; 36415; 36600; 71045; 80053; 82375; 82803; 82947; 83605; 83880; 84145; 84484; 85025; 85610; 85730; 87040; 93005; 93268; 94002; 94640; 94762; 96360; 96374; 99285; 99291; G0378; J0248; J0456; J0696; J1100; J2060; J2270; A9270-GY